=== PATIENT | female | born 1940 | race Caucasian/White ===

== ENCOUNTER 2018-03-29 19:30 | Inpatient (IN) | payer OTHER ==
[2018-03-29] MEDS ORDERED: BISACODYL (EC) 5 MG TAB PO (22:00)
[2018-03-29] MEDS ORDERED: NACL 0.9% 3 ML SYG IV (22:00)
[2018-03-29] MEDS ORDERED: ACETAMINOPHEN 325 MG TAB PO (22:00)
[2018-03-29] MEDS ORDERED: DOCUSATE SODIUM 100 MG CAP PO (22:00)
[2018-03-29 23:24] LABS: ALBUMIN 3.9 g/dl (3.3-4.9); ALBUMIN/GLOBULIN RATIO 1.05; ALKALINE PHOSPHATASE 254 IU/L (42-121); ANION GAP 11 (8-16); ASPARTATE AMINO TRANSFERASE 43 IU/L (15-46); BILIRUBIN,INDIRECT 1.1 mg/dl (0-1.1); BILIRUBIN,TOTAL 1.1 mg/dl (0.2-1.3); BLOOD UREA NITROGEN 18 mg/dl (7-20); CARBON DIOXIDE 32 mmol/L (21-31); CHLORIDE 101 mmol/L (97-110); CREATININE 0.66 mg/dl (0.44-1.00); GLUCOSE 172 mg/dl (70-220); POTASSIUM 3.8 mmol/L (3.5-5.1); SODIUM 140 mmol/L (135-144); TOTAL PROTEIN 7.6 g/dl (6.1-8.1)
[2018-03-29 23:32] LABS: B-TYPE NATRIURETIC PEPTIDE 1440 PG/ML (0-450)
[2018-03-29 23:40] LABS: ALANINE AMINOTRANSFERASE 38 IU/L (13-69)
[2018-03-30] MEDS ORDERED: DIGOXIN 0.125 MG TAB (00:42)
[2018-03-30] MEDS: DIGOXIN 0.125 MG TAB PO ×2 (03:12→13:03)
[2018-03-30 05:23] LABS: ADD MAN DIFF? NO
[2018-03-30 05:34] LABS: WHITE BLOOD COUNT 8.1 10^3/ul (4.8-10.8)
[2018-03-30 05:34] LABS: BASOPHILS % 0.5 % (0.0-2.0); EOSINOPHILS # 0.3 10^3/ul (0.0-0.5); EOSINOPHILS % 3.3 % (0.0-7.0); HEMATOCRIT 40.8 % (37.0-47.0); LYMPHOCYTES # 2.1 10^3/ul (0.8-2.9); LYMPHOCYTES % 26.5 % (15.0-51.0); MEAN CORPUSCULAR HEMOGLOBIN 27.7 pg (29.0-33.0); MEAN CORPUSCULAR HGB CONC 31.9 g/dl (32.0-37.0); MEAN CORPUSCULAR VOLUME 86.8 fl (82.0-101.0); MEAN PLATELET VOLUME 10.4 fl (7.4-10.4); MONOCYTE # 0.7 10^3/ul (0.3-0.9); MONOCYTES % 9.1 % (0.0-11.0); NEUTROPHIL # 4.9 10^3/ul (1.6-7.5); NEUTROPHILS % 60.4 % (39.0-77.0); PLATELET COUNT 155 10^3/UL (140-415); RED CELL DISTRIBUTION WIDTH 17.5 % (11.5-14.5)
[2018-03-30 05:41] LABS: HEMOGLOBIN A1C 6.1 % (0-5.9)
[2018-03-30 05:50] LABS: PROTIME 35.4 Sec (11.9-14.9); PT RATIO 2.8
[2018-03-30 06:01] LABS: ALANINE AMINOTRANSFERASE 36 IU/L (13-69); ALBUMIN 3.5 g/dl (3.3-4.9); ALBUMIN/GLOBULIN RATIO 0.94; ALKALINE PHOSPHATASE 239 IU/L (42-121); ANION GAP 12 (8-16); ASPARTATE AMINO TRANSFERASE 41 IU/L (15-46); BILIRUBIN,INDIRECT 1.2 mg/dl (0-1.1); BILIRUBIN,TOTAL 1.2 mg/dl (0.2-1.3); BLOOD UREA NITROGEN 17 mg/dl (7-20); CALCIUM 8.7 mg/dl (8.4-10.2); CARBON DIOXIDE 34 mmol/L (21-31); CHLORIDE 102 mmol/L (97-110); CREATININE 0.61 mg/dl (0.44-1.00); GLUCOSE 70 mg/dl (70-220); MAGNESIUM 1.9 mg/dl (1.7-2.5); POTASSIUM 3.5 mmol/L (3.5-5.1); SODIUM 144 mmol/L (135-144); TOTAL PROTEIN 7.2 g/dl (6.1-8.1)
[2018-03-30] MEDS ORDERED: hydrALAzine 20 MG INJ IV (06:30)
[2018-03-30] MEDS: FUROSEMIDE 20 MG INJ IV ×2 (09:25→13:45)
[2018-03-30] MEDS: PROPAFENONE 150 MG TAB PO (09:26)
[2018-03-30] MEDS: MENTHOL/METH SALICYLATE 30 GM OINT TOP ×3 (09:28→19:56)
[2018-03-30] MEDS: CEFTRIAXONE 1 GM/50 ML (PMX) 50 ML IVPB (13:04)
[2018-03-30] MEDS ORDERED: WARFARIN 2 MG TAB PO (17:00)
[2018-03-31 05:21] LABS: ADD MAN DIFF? NO
[2018-03-31 05:25] LABS: BASOPHIL # 0.1 10^3/ul (0.0-0.1); BASOPHILS % 0.6 % (0.0-2.0); EOSINOPHILS # 0.4 10^3/ul (0.0-0.5); HEMATOCRIT 44.1 % (37.0-47.0); HEMOGLOBIN 14.3 g/dl (12.0-16.0); LYMPHOCYTES # 2.6 10^3/ul (0.8-2.9); LYMPHOCYTES % 26.4 % (15.0-51.0); MEAN CORPUSCULAR HEMOGLOBIN 27.8 pg (29.0-33.0); MEAN CORPUSCULAR HGB CONC 32.4 g/dl (32.0-37.0); MEAN CORPUSCULAR VOLUME 85.8 fl (82.0-101.0); MEAN PLATELET VOLUME 10.5 fl (7.4-10.4); MONOCYTE # 0.9 10^3/ul (0.3-0.9); NEUTROPHILS % 59.8 % (39.0-77.0); PLATELET COUNT 179 10^3/UL (140-415); RED BLOOD COUNT 5.14 10^6/ul (4.20-5.40); RED CELL DISTRIBUTION WIDTH 18.2 % (11.5-14.5)
[2018-03-31 05:40] LABS: DIGOXIN 0.6 ng/ml (1.0-2.0)
[2018-03-31 05:44] LABS: INR 2.27; PROTIME 25.6 Sec (11.9-14.9)
[2018-03-31 05:58] LABS: B-TYPE NATRIURETIC PEPTIDE 485 PG/ML (0-450)
[2018-03-31 05:59] LABS: ALANINE AMINOTRANSFERASE 35 IU/L (13-69); ALBUMIN 3.7 g/dl (3.3-4.9); ALBUMIN/GLOBULIN RATIO 0.94; ALKALINE PHOSPHATASE 259 IU/L (42-121); ANION GAP 11 (8-16); ASPARTATE AMINO TRANSFERASE 45 IU/L (15-46); BILIRUBIN,INDIRECT 1.3 mg/dl (0-1.1); BILIRUBIN,TOTAL 1.3 mg/dl (0.2-1.3); BLOOD UREA NITROGEN 25 mg/dl (7-20); CALCIUM 9.4 mg/dl (8.4-10.2); CARBON DIOXIDE 36 mmol/L (21-31); CHLORIDE 99 mmol/L (97-110); CHOL/HDL RATIO 4.3 RATIO; CHOLESTEROL 155 mg/dl (100-200); CREATININE 0.65 mg/dl (0.44-1.00); GLUCOSE 104 mg/dl (70-220); HDL CHOLESTEROL 36 mg/dl (33-92); LDL CHOLESTEROL,CALCULATED 94 mg/dl; POTASSIUM 3.4 mmol/L (3.5-5.1); SODIUM 143 mmol/L (135-144); TOTAL PROTEIN 7.6 g/dl (6.1-8.1); TRIGLYCERIDES 126 mg/dl (0-149)
[2018-03-31 06:04] LABS: FREE T3 3.03 pg/ml (2.77-5.27)
[2018-03-31] MEDS: PROPAFENONE 150 MG TAB PO (08:36)
[2018-03-31] MEDS: MENTHOL/METH SALICYLATE 30 GM OINT TOP ×2 (08:37→12:35)
[2018-03-31] MEDS: CEFTRIAXONE 1 GM/50 ML (PMX) 50 ML IVPB (12:34)
[2018-03-31] MEDS: DIGOXIN 0.125 MG TAB PO (12:35)
== END 2018-03-31 14:32 | disposition home or self-care (01) | DRG 689 ==
LOC: 6WM 19:30
DX: N39.0 Urinary tract infection, site not specified (principal); I50.21 Acute systolic (congestive) heart failure; D68.9 Coagulation defect, unspecified; I11.0 Hypertensive heart disease with heart failure; R51 Headache; I48.91 Unspecified atrial fibrillation; Z95.2 Presence of prosthetic heart valve; Z95.0 Presence of cardiac pacemaker; I27.20 Pulmonary hypertension, unspecified; Z79.01 Long term (current) use of anticoagulants
CPT/HCPCS: 70450; 71045; 80053; 80061; 80162; 83036; 83735; 83880; 84439; 84443; 84481; 85025; 85610; 85730; 93306

== ENCOUNTER 2018-05-07 18:27 | Observation (INO) | payer OTHER ==
[2018-05-07 20:21] LABS: ADD MAN DIFF? NO
[2018-05-07 20:23] LABS: BASOPHIL # 0.1 10^3/ul (0.0-0.1); BASOPHILS % 0.5 % (0.0-2.0); EOSINOPHILS # 0.2 10^3/ul (0.0-0.5); EOSINOPHILS % 2.4 % (0.0-7.0); HEMATOCRIT 42.6 % (37.0-47.0); HEMOGLOBIN 13.6 g/dl (12.0-16.0); LYMPHOCYTES # 2.1 10^3/ul (0.8-2.9); LYMPHOCYTES % 21.7 % (15.0-51.0); MEAN CORPUSCULAR HEMOGLOBIN 28.2 pg (29.0-33.0); MEAN CORPUSCULAR HGB CONC 31.9 g/dl (32.0-37.0); MEAN CORPUSCULAR VOLUME 88.2 fl (82.0-101.0); MEAN PLATELET VOLUME 10.5 fl (7.4-10.4); MONOCYTE # 0.7 10^3/ul (0.3-0.9); MONOCYTES % 7.4 % (0.0-11.0); NEUTROPHIL # 6.6 10^3/ul (1.6-7.5); NEUTROPHILS % 67.8 % (39.0-77.0); PLATELET COUNT 197 10^3/UL (140-415); RED BLOOD COUNT 4.83 10^6/ul (4.20-5.40); RED CELL DISTRIBUTION WIDTH 17.1 % (11.5-14.5)
[2018-05-07 20:23] LABS: WHITE BLOOD COUNT 9.7 10^3/ul (4.8-10.8)
[2018-05-07 20:48] LABS: ALANINE AMINOTRANSFERASE 28 IU/L (13-69); ALBUMIN 4.3 g/dl (3.3-4.9); ALBUMIN/GLOBULIN RATIO 1.07; ALKALINE PHOSPHATASE 258 IU/L (42-121); ANION GAP 7 (5-13); ASPARTATE AMINO TRANSFERASE 40 IU/L (15-46); BILIRUBIN,INDIRECT 0.5 mg/dl (0-1.1); BILIRUBIN,TOTAL 0.5 mg/dl (0.2-1.3); BLOOD UREA NITROGEN 19 mg/dl (7-20); CALCIUM 9.6 mg/dl (8.4-10.2); CARBON DIOXIDE 30 mmol/L (21-31); CHLORIDE 103 mmol/L (97-110); CREATININE 0.74 mg/dl (0.44-1.00); GLUCOSE 133 mg/dl (70-220); SODIUM 140 mmol/L (135-144); TOTAL PROTEIN 8.3 g/dl (6.1-8.1)
[2018-05-07 20:49] LABS: POTASSIUM 4.4 mmol/L (3.5-5.1)
[2018-05-07 21:00] LABS: B-TYPE NATRIURETIC PEPTIDE 789 PG/ML (0-450); TROPONIN-I < 0.012 ng/ml (0.000-0.120)
[2018-05-07] MEDS ORDERED: ONDANSETRON 4 MG INJ IV (22:00)
[2018-05-07] MEDS ORDERED: ACETAMINOPHEN 325 MG TAB PO ×2 (22:00→23:00)
[2018-05-07] MEDS: ASPIRIN 81 MG TAB PO (22:55)
[2018-05-07] MEDS ORDERED: ALBUTEROL/IPRATROPIUM (NEB) 3 ML AMP HHN (23:00)
[2018-05-07] MEDS ORDERED: NITROGLYCERIN (SL) 0.4 MG TAB SL (23:00)
[2018-05-07] MEDS ORDERED: NACL 0.9% 3 ML SYG IV (23:00)
[2018-05-07 23:35] LABS: CREATINE KINASE 34 IU/L (23-200)
[2018-05-07 23:49] LABS: CK INDEX 1.9; CK-MB 0.64 ng/ml (0.0-2.4); TROPONIN-I < 0.012 ng/ml (0.000-0.120)
[2018-05-08 04:57] LABS: ADD UMIC NO; UR ASCORBIC ACID NEGATIVE (NEGATIVE); UR BILIRUBIN (Dip) NEGATIVE (NEGATIVE); UR BLOOD (Dip) NEGATIVE (NEGATIVE); UR CLARITY CLEAR (CLEAR); UR COLOR YELLOW (YELLOW); UR GLUCOSE (Dip) NEGATIVE (NEGATIVE); UR KETONES (Dip) NEGATIVE (NEGATIVE); UR LEUKOCYTE ESTERASE (Dip) NEGATIVE Leu/ul (NEGATIVE); UR NITRITE (Dip) NEGATIVE (NEGATIVE); UR TOTAL PROTEIN (Dip) NEGATIVE (NEGATIVE); UR UROBILINOGEN (Dip) 1+ mg/dL (NEGATIVE)
[2018-05-08 06:37] LABS: ADD MAN DIFF? NO
[2018-05-08 06:43] LABS: WHITE BLOOD COUNT 7.2 10^3/ul (4.8-10.8)
[2018-05-08 06:43] LABS: BASOPHILS % 0.6 % (0.0-2.0); EOSINOPHILS # 0.2 10^3/ul (0.0-0.5); EOSINOPHILS % 3.2 % (0.0-7.0); HEMATOCRIT 37.7 % (37.0-47.0); HEMOGLOBIN 12.2 g/dl (12.0-16.0); LYMPHOCYTES % 27.9 % (15.0-51.0); MEAN CORPUSCULAR HEMOGLOBIN 28.8 pg (29.0-33.0); MEAN CORPUSCULAR HGB CONC 32.4 g/dl (32.0-37.0); MEAN CORPUSCULAR VOLUME 88.9 fl (82.0-101.0); MEAN PLATELET VOLUME 11.1 fl (7.4-10.4); MONOCYTE # 0.6 10^3/ul (0.3-0.9); MONOCYTES % 8.3 % (0.0-11.0); NEUTROPHIL # 4.3 10^3/ul (1.6-7.5); NEUTROPHILS % 59.7 % (39.0-77.0); PLATELET COUNT 160 10^3/UL (140-415); RED BLOOD COUNT 4.24 10^6/ul (4.20-5.40); RED CELL DISTRIBUTION WIDTH 17.1 % (11.5-14.5)
[2018-05-08 06:57] LABS: CREATINE KINASE 26 IU/L (23-200)
[2018-05-08 07:05] LABS: ALANINE AMINOTRANSFERASE 29 IU/L (13-69); ALBUMIN 2.9 g/dl (3.3-4.9); ALKALINE PHOSPHATASE 224 IU/L (42-121); ANION GAP 5 (5-13); ASPARTATE AMINO TRANSFERASE 35 IU/L (15-46); BILIRUBIN,INDIRECT 0.8 mg/dl (0-1.1); BILIRUBIN,TOTAL 0.8 mg/dl (0.2-1.3); BLOOD UREA NITROGEN 17 mg/dl (7-20); CALCIUM 9.2 mg/dl (8.4-10.2); CARBON DIOXIDE 33 mmol/L (21-31); CHLORIDE 105 mmol/L (97-110); GLUCOSE 92 mg/dl (70-220); POTASSIUM 4.5 mmol/L (3.5-5.1); SODIUM 143 mmol/L (135-144); TOTAL PROTEIN 6.1 g/dl (6.1-8.1)
[2018-05-08 07:10] LABS: CK INDEX 3.2; CK-MB 0.84 ng/ml (0.0-2.4); TROPONIN-I < 0.012 ng/ml (0.000-0.120)
[2018-05-08] MEDS ORDERED: HEPARIN 5,000 UNIT/0.5 ML VIAL (08:34)
[2018-05-08 08:42] LABS: CHOL/HDL RATIO 3.4 RATIO; HDL CHOLESTEROL 44 mg/dl (33-92); LDL CHOLESTEROL,CALCULATED 94 mg/dl; TRIGLYCERIDES 75 mg/dl (0-149)
[2018-05-08 08:42] LABS: CHOLESTEROL 153 mg/dl (100-200)
[2018-05-08 08:43] LABS: INR 1.79; PROTIME 21.2 Sec (11.9-14.9); PT RATIO 1.7
[2018-05-08 08:47] LABS: HEMOGLOBIN A1C 5.8 % (0-5.9)
[2018-05-08] MEDS: PROPAFENONE 150 MG TAB PO (08:53)
[2018-05-08] MEDS: HEPARIN SODIUM 5,000 UNIT/ML VIAL SC (08:53)
[2018-05-08] MEDS ORDERED: ASPIRIN 81 MG TAB PO (09:00)
[2018-05-08] MEDS: DIGOXIN 0.125 MG TAB PO (12:05)
[2018-05-08] MEDS ORDERED: WARFARIN 2 MG TAB PO (17:00)
[2018-05-08] MEDS: WARFARIN 3 MG TAB PO (17:13)
[2018-05-08] MEDS: ENOXAPARIN 80 MG/0.8 ML SYG SC (20:22)
[2018-05-09 07:01] LABS: ADD MAN DIFF? NO
[2018-05-09 07:10] LABS: WHITE BLOOD COUNT 7.3 10^3/ul (4.8-10.8)
[2018-05-09 07:10] LABS: BASOPHILS % 0.5 % (0.0-2.0); EOSINOPHILS # 0.2 10^3/ul (0.0-0.5); HEMATOCRIT 37.2 % (37.0-47.0); HEMOGLOBIN 12.1 g/dl (12.0-16.0); LYMPHOCYTES % 26.9 % (15.0-51.0); MEAN CORPUSCULAR HEMOGLOBIN 28.6 pg (29.0-33.0); MEAN CORPUSCULAR HGB CONC 32.5 g/dl (32.0-37.0); MEAN CORPUSCULAR VOLUME 87.9 fl (82.0-101.0); MONOCYTE # 0.7 10^3/ul (0.3-0.9); MONOCYTES % 9.1 % (0.0-11.0); NEUTROPHIL # 4.4 10^3/ul (1.6-7.5); NEUTROPHILS % 60.4 % (39.0-77.0); PLATELET COUNT 170 10^3/UL (140-415); RED BLOOD COUNT 4.23 10^6/ul (4.20-5.40)
[2018-05-09 07:45] LABS: ALANINE AMINOTRANSFERASE 28 IU/L (13-69); ALBUMIN 2.9 g/dl (3.3-4.9); ALBUMIN/GLOBULIN RATIO 0.85; ALKALINE PHOSPHATASE 222 IU/L (42-121); ANION GAP 6 (5-13); ASPARTATE AMINO TRANSFERASE 36 IU/L (15-46); BLOOD UREA NITROGEN 19 mg/dl (7-20); CARBON DIOXIDE 31 mmol/L (21-31); CHLORIDE 103 mmol/L (97-110); CREATININE 0.65 mg/dl (0.44-1.00); GLUCOSE 80 mg/dl (70-220); PHOSPHORUS 3.8 mg/dl (2.5-4.9); POTASSIUM 3.9 mmol/L (3.5-5.1); SODIUM 140 mmol/L (135-144); TOTAL PROTEIN 6.3 g/dl (6.1-8.1)
[2018-05-09 07:48] LABS: INR 1.36; PT RATIO 1.3
[2018-05-09 07:58] LABS: FREE T4 (FREE THYROXINE) 0.98 ng/dl (0.85-1.93)
[2018-05-09 08:53] LABS: TRIIODOTHYRONINE 0.87 ng/ml (0.97-1.69)
[2018-05-09] MEDS: BENAZEPRIL 20 MG TAB PO (09:37)
[2018-05-09] MEDS: PROPAFENONE 150 MG TAB PO (09:37)
[2018-05-09] MEDS: ENOXAPARIN 80 MG/0.8 ML SYG SC (09:41)
[2018-05-09] MEDS: DIGOXIN 0.125 MG TAB PO (12:54)
[2018-05-09] MEDS: WARFARIN 3 MG TAB PO (16:15)
== END 2018-05-09 16:33 | disposition home or self-care (01) ==
LOC: E/R 18:27 → TEL 21:52
DX: R07.89 Other chest pain (principal); I48.2 Chronic atrial fibrillation; I11.0 Hypertensive heart disease with heart failure; I50.9 Heart failure, unspecified; J44.9 Chronic obstructive pulmonary disease, unspecified; E03.9 Hypothyroidism, unspecified; Z79.01 Long term (current) use of anticoagulants; Z95.0 Presence of cardiac pacemaker; Z88.0 Allergy status to penicillin
CPT/HCPCS: 36415; 71045; 80053; 80061; 81003; 82550; 82553; 83036; 83735; 83880; 84100; 84439; 84443; 84480; 84484; 85025; 85610; 90686; 93005; 99217; 99285-25; G0378

== ENCOUNTER 2018-05-18 11:28 | Observation (INO) | payer OTHER ==
[2018-05-18] MEDS: FAMOTIDINE 20 MG TAB PO (11:00)
[2018-05-18] MEDS: DIAZEPAM 5 MG TAB PO (11:00)
[2018-05-18] MEDS: DIPHENHYDRAMINE 50 MG CAP PO (11:00)
[~2018-05-18 11:28] MED LIST: LIDOCAINE 2% (SDV) 5 ML INJ; SOD CHLORIDE 0.45% 1,000 ML IV
[2018-05-18 12:07] LABS: ADD MAN DIFF? NO
[2018-05-18 12:17] LABS: WHITE BLOOD COUNT 6.8 10^3/ul (4.8-10.8)
[2018-05-18 12:17] LABS: BASOPHILS % 0.6 % (0.0-2.0); EOSINOPHILS # 0.2 10^3/ul (0.0-0.5); EOSINOPHILS % 2.5 % (0.0-7.0); HEMATOCRIT 40.4 % (37.0-47.0); HEMOGLOBIN 12.8 g/dl (12.0-16.0); LYMPHOCYTES # 1.6 10^3/ul (0.8-2.9); LYMPHOCYTES % 23.9 % (15.0-51.0); MEAN CORPUSCULAR HEMOGLOBIN 28.4 pg (29.0-33.0); MEAN CORPUSCULAR HGB CONC 31.7 g/dl (32.0-37.0); MEAN CORPUSCULAR VOLUME 89.6 fl (82.0-101.0); MEAN PLATELET VOLUME 11.4 fl (7.4-10.4); MONOCYTE # 0.5 10^3/ul (0.3-0.9); MONOCYTES % 6.6 % (0.0-11.0); NEUTROPHIL # 4.5 10^3/ul (1.6-7.5); NEUTROPHILS % 66.1 % (39.0-77.0); PLATELET COUNT 167 10^3/UL (140-415); RED BLOOD COUNT 4.51 10^6/ul (4.20-5.40)
[2018-05-18 12:35] LABS: INR 1.42; PROTIME 17.6 Sec (11.9-14.9); PT RATIO 1.4
[2018-05-18 12:36] LABS: ANION GAP 8 (5-13); BLOOD UREA NITROGEN 17 mg/dl (7-20); CARBON DIOXIDE 30 mmol/L (21-31); CHLORIDE 103 mmol/L (97-110); CHOL/HDL RATIO 3.7 RATIO; CHOLESTEROL 153 mg/dl (100-200); CREATININE 0.65 mg/dl (0.44-1.00); GLUCOSE 100 mg/dl (70-220); HDL CHOLESTEROL 41 mg/dl (33-92); LDL CHOLESTEROL,CALCULATED 95 mg/dl; POTASSIUM 4.8 mmol/L (3.5-5.1); SODIUM 141 mmol/L (135-144); TRIGLYCERIDES 87 mg/dl (0-149)
[2018-05-18] MEDS ORDERED: PROPOFOL 20 ML (13:24)
[2018-05-18] MEDS: POLYMYXIN/BACITRACIN 1L IRRIG (13:47)
[2018-05-18] MEDS: LIDOCAINE 1% (STERILE-PAK) 30 ML INJ (13:47)
[2018-05-18] MEDS: BUPIVACAINE 0.5% (SDV) 30 ML INJ (13:48)
[2018-05-18] MEDS ORDERED: ONDANSETRON 4 MG INJ (15:00)
[2018-05-18] MEDS ORDERED: morphine 2 MG INJ IV (15:00)
[2018-05-18] MEDS ORDERED: ONDANSETRON 4 MG INJ IV (15:30)
[2018-05-18] MEDS ORDERED: **FLU VACCINE PREVIOUSLY DISPENSED XX (20:00)
[2018-05-18] MEDS: TRIMETHOPRIM/SULFAMETHOX (DS) TAB PO (20:38)
[2018-05-19] MEDS: TRIMETHOPRIM/SULFAMETHOX (DS) TAB PO (08:58)
[2018-05-19] MEDS: BENAZEPRIL 20 MG TAB PO (08:58)
[2018-05-19] MEDS ORDERED: WARFARIN 3 MG TAB PO (17:00)
== END 2018-05-19 14:13 | disposition home or self-care (01) ==
LOC: SDS 11:28 → REC 14:36 → TEL 17:05
DX: Z45.010 Encounter for checking and testing of cardiac pacemaker pulse generator [battery] (principal); I10 Essential (primary) hypertension; E78.5 Hyperlipidemia, unspecified; I25.10 Atherosclerotic heart disease of native coronary artery without angina pectoris; Z95.1 Presence of aortocoronary bypass graft; M19.90 Unspecified osteoarthritis, unspecified site
CPT/HCPCS: 33228; 71045; 80048; 80061; 85025; 85610; 85730; 88300; 93005; G0378